=== PATIENT | male | born 1990 | race African-American/Black ===

== ENCOUNTER 2017-07-23 03:37 | Emergency (ER) | payer OTHER ==
[2017-07-23 04:53] VITALS: BP 142/68; PULSE 61; TEMP 98.1; BMI 21.7
[2017-07-23] MEDS ORDERED: METHOCARBAMOL 500 MG TABLET PO ONE (04:55)
[2017-07-23] MEDS ORDERED: KETOROLAC TROMETHAMINE 60 MG/2 ML VIAL IM ONE (04:55)
--- NOTE | 2017-07-23 04:55 | PDOC ---
History of Present Illness - General Chief Complaint: Pain, Acute Stated Complaint: NECK/BACK PAIN Time Seen by Provider: 07/23/17 04:50 History Source: Patient Exam Limitations: No Limitations - History of Present Illness Initial Comments: 07/23/17 05:01 Pt with c/o right side neck and shoulder pain after heavy lifting two days ago. Pt is right handed. Pt denies any trauma such as fall. Denies any Medical history. Past History - Past Medical History Allergies/Adverse Reactions: Allergies Allergy/AdvReac Type Severity Reaction Status Date / Time No Known Allergies Allergy Verified 07/23/17 04:53 Home Medications: Ambulatory Orders Ibuprofen 800 mg PO TID #30 tablet 07/23/17 Methocarbamol [Robaxin -] 1,000 mg PO TID #60 tablet 07/23/17 - Suicide/Smoking/Psychosocial Hx Smoking History: Never smoked Have you smoked in the past 12 months: No Information on smoking cessation initiated: No Hx Alcohol Use: Yes Drug/Substance Use Hx: No Review of Systems - Review of Systems Able to Perform ROS?: Yes Is the patient limited Lao proficient: No Constitutional: Yes: Symptoms Reported. No: See HPI, Chills, Diaphoresis, Fever , Loss of Appetite, Malaise, Weakness, Weight Stable, Other HEENTM: Yes: Symptoms Reported, See HPI. No: Blurred Vision, Tearing, Recent change in vision, Double Vision, Cataracts, Ocular Prothesis, Ear Discharge, Nose Bleeding, Dental Problems Respiratory: Yes: Symptoms reported, See HPI. No: Cough, Orthopnea, Shortness of Breath, SOB with Exertion, SOB at Rest, Productive cough, Hemoptysis Cardiac (ROS): Yes: Symptoms Reported, See HPI. No: Chest Pain, Edema, Irregular Heart Rate, Lightheadedness, Palpitations, Chest Tightness, Other ABD/GI: Yes: Symptoms Reported, See HPI. No: Abdominal Distended, Abd. Pain w/ defecation, Blood Streaked Bowels, Constipated, Diarrhea, Poor Fluid Intake, Abdominal cramping : Yes: Symptoms Reported, See HPI. No: Burning, Dysuria, Discharge, Frequency , Flank Pain, Urgency Musculoskeletal: Yes: Symptoms Reported, See HPI, Muscle Pain, Neck Pain Integumentary: Yes: Symptoms Reported, See HPI. No: Change in Color, Change in Hair/Nails, Dryness, Lesions, Lumps, Pruritus Neurological: Yes: Symptoms reported, See HPI. No: Headache, Numbness, Paresthesia, Seizure, Weakness Psychiatric: No: Anxiety, Depression, Frequent Crying, Stressors, Sleep Pattern Change Endocrine: Yes: Symptoms Reported, See HPI. No: Excessive Sweating, Flushing, Intolerance to Cold, Intolerance to Heat, Increased Hunger, Increased Thirst, Increased Urine, Unexplained Weight Gain Hematologic/Lymphatic: Yes: Symptoms Reported, See HPI. No: Anemia, Blood Clots , Easy Bleeding, Easy Bruising, Bleeding Diathesis, Lymph Node Abnormalities *Physical Exam - Vital Signs Last Vital Signs Temp Pulse Resp BP Pulse Ox 98.1 F 61 18 142/68 100 07/23/17 04:48 07/23/17 04:48 07/23/17 04:48 07/23/17 04:48 07/23/17 04:48 - Physical Exam Comments: 07/23/17 04:59 *Physical Exam General Appearance: Yes: Appropriately Dressed. No: Apparent Distress, Intoxicated HEENT: positive: EOMI, VY, Normal ENT Inspection, Normal Voice, TMs Normal, Pharynx Normal. negative: Pale Conjunctivae, Photophobia, Scleral Icterus (R), Scleral Icterus (L) Neck: positive: Trachea midline, Normal Thyroid, Supple. negative: Tender, Rigid, Carotid bruit, Stridor, Lymphadenopathy (R), Lymphadenopathy (L), Thyromegaly Respiratory/Chest: positive: Lungs Clear, Normal Breath Sounds. negative: Chest Tender, Respiratory Distress, Accessory Muscle Use, Labored Respiration, RES, Crackles, Rales, Rhonchi, Stridor, Wheezing, Dullness Cardiovascular: positive: Regular Rhythm, Regular Rate, S1, S2. negative: Edema , JVD, Murmur, Bradycardia, Tachycardia Vascular Pulses: Dorsalis-Pedis (R): 2+, Doralis-Pedis (L): 2+ Gastrointestinal/Abdominal: positive: Normal Bowel Sounds, Flat, Soft. negative : Tender, Organomegaly, Pulsatile Mass, Increased Bowel Sounds, Decreased BS, Distended, Guarding, Rebound, Hernia, Hepatomegaly, Spleenomegaly Lymphatic: negative: Adenopathy, Tenderness Musculoskeletal: positive: Normal Inspection. negative: CVA Tenderness, Decreased Range of Motion Extremity: positive: Normal Capillary Refill, Normal Inspection, Normal Range of Motion, Pelvis Stable. negative: Tender, Pedal Edema, Swelling, Erythema Integumentary: positive: Normal Color, Dry, Warm. 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 negative: EOM Palsy, Facial Droop, Sensory Deficit Medical Decision Making - Medical Decision Making 07/23/17 04:58 Dr. Bellamy: The scribe's documentation has been prepared under my direction and personally reviewed by me in its entirery. I confirm that the note above accurately reflects all work, treatment, procedures, and medical decision making performed by me. *DC/Admit/Observation/Transfer Diagnosis at time of Disposition: Muscle spasm - Discharge Dispostion Disposition: HOME Condition at time of disposition: Stable Admit: No - Prescriptions Prescriptions: Ibuprofen 800 mg PO TID #30 tablet Methocarbamol [Robaxin -] 1,000 mg PO TID #60 tablet - Referrals Referrals: Mony Manjarrez MD [Primary Care Provider] - Jaime Langley MD [Staff Physician] - - Patient Instructions Printed Discharge Instructions: DI for Muscle Strain
[2017-07-23] MEDS ORDERED: KETOROLAC TROMETHAMINE 60 MG/2 ML VIAL ONE (05:00)
[2017-07-23] MEDS ORDERED: METHOCARBAMOL 500 MG TABLET ONE (05:00)
== END 2017-07-23 05:38 | disposition home or self-care (01) ==
LOC: JER 03:37
PROC: 3E0233Z Introduction of Anti-inflammatory into Muscle, Percutaneous Approach (ICD-10-PCS; principal; 2017-07-23)
DX: M62.838 Other muscle spasm (principal)
CPT/HCPCS: 99281-25; 99282-25